=== PATIENT | female | born 1940 | race Caucasian/White ===

== ENCOUNTER 2016-09-23 14:02 | Emergency (ER) | payer OTHER ==
[~2016-09-23] VITALS: Ht 157.5 cm; Wt 94.1 kg
[~2016-09-23 14:02] MED LIST: CALCIUM600 M1 PO; EEMT HS 0.625-1 EACH PO; HAIR SKIN NAIL1 EACH PO; KENALOG IN ORABA5 GM DT; LEXAPRO10 MG PO; LOPRESSOR25 MG PO; MICARDIS20 MG PO; MYCELEX10 MG PO; NAPROSYN500 MG PO; PROBIOTIC1 EAC1 PO; PROMETRIUM100 MG PO; SILVER SULFADIA50 GM TP; TOPROL XL50 MG PO; XANAX0.25 MG PO
[2016-09-23 14:41] LABS: BASOPHIL COUNT 0.1 K/uL (0-0.1); EOSINOPHIL (%) 1.4 % (0-5); EOSINOPHIL COUNT 0.1 K/uL (0-0.3); HEMATOCRIT 40.6 % (36.0-46.0); IMMATURE GRANULOCYTE (%) 0.1 % (0.0-0.7); IMMATURE GRANULOCYTE COUNT 0.1 K/uL; LYMPHOCYTE COUNT 1.3 K/uL (1.0-2.8); MCH 31.9 PG (29.0-34.0); MCHC 33.5 G/DL (30.0-36.0); MCV 95.1 FL (83-99); MEAN PLAT.VOLUME 11.8 uM^3 (9.5-12.4); MONOCYTE (%) 9.3 % (3-12); MONOCYTE COUNT 0.7 K/uL (0-0.8); NEUTROPHIL (%) 71.3 % (45-76); NEUTROPHIL COUNT 5.4 K/uL (1.8-6.4); PLATELET COUNT 251 K/uL (156-360); RBC DIS.WIDTH-SD 43.5 % (39-53); RED BLOOD COUNT 4.27 M/uL (3.80-5.20); WHITE BLOOD COUNT 7.6 K/uL (4.1-10.2)
[2016-09-23 14:57] LABS: CHLORIDE 106 mEq/L (99-109); POTASSIUM 5.1 mEq/L (3.7-5.4); SODIUM 137 mEq/L (136-147)
[2016-09-23 14:59] LABS: GLUCOSE 102 mg/dL (70-99)
[2016-09-23 15:00] LABS: ANION GAP 11 MEQ/L (2-14)
[2016-09-23 15:01] LABS: TROP-I INTERPRETATION NEGATIVE; TROPONIN-I < 0.01 ng/mL (0.0-0.30)
[2016-09-23 15:02] LABS: GFR ESTIMATE (CALCULATED) > 59 mL/min/
[2016-09-23 15:03] LABS: UREA NITROGEN (BUN) 12 mg/dL (9-23)
[2016-09-23 15:03] LABS: BILIRUBIN NEGATIVE; BLOOD NEGATIVE; COLOR YELLOW ((YELLOW)); GLUCOSE (STRIP) NEGATIVE; KETONES NEGATIVE; LEUKOCYTES NEGATIVE; NITRITE NEGATIVE; PROTEIN (STRIP) NEGATIVE; SPECIFIC GRAVITY 1.008 (1.000-1.030); UROBILINOGEN 0.2 MG/DL (0.2-1.0)
[2016-09-23 15:08] LABS: ADD MIUA? NO; UCUL ADDED? NO
[2016-09-23] MEDS ORDERED: MICARDIS40 MG PO (15:35)
[2016-09-23] MEDS ORDERED: TOPROL XL50 MG PO (15:36)
[2016-09-23] MEDS ORDERED: PROGESTERONE100 MG PO (15:37)
[2016-09-23] MEDS ORDERED: NEXIUM20 MG PO (15:37)
[2016-09-23] MEDS ORDERED: ZITHROMAX Z-PA250 MG PO (17:40)
[2016-09-23 18:10] VITALS: BP 120/84
== END 2016-09-23 18:25 | disposition home or self-care (01) ==
LOC: EME 14:02
PROVIDERS: Emergency Medicine
DX: J01.90 Acute sinusitis, unspecified (principal); R53.1 Weakness; R05 Cough; I10 Essential (primary) hypertension; K21.9 Gastro-esophageal reflux disease without esophagitis; Z85.828 Personal history of other malignant neoplasm of skin; Z87.891 Personal history of nicotine dependence
CPT/HCPCS: 71020; 71260; 80048; 81003; 84484; 85025; 93005; 99281; 99285; J7030

== ENCOUNTER → 2018-03-22 | Outpatient (CLI) | payer OTHER ==
[~2018-03-22] VITALS: Ht 157.5 cm; Wt 89.4 kg
[~2018-03-22] MED LIST changes: +CYANOCOBAL1000 MCG/2 IM; +DAILY MULTIPLE1 EACH PO; +METOPROLOL SUCC25 MG PO; +MICARDIS40 MG PO; +NEXIUM20 MG PO; +OMEGA-31000 M1 PO; +OMEPRAZOLE20 M2 PO; +PROGESTERONE100 MG PO; +ZITHROMAX Z-PA250 MG PO
== END | disposition home or self-care (01) ==
LOC: AMB 07:20
DX: K22.2 Esophageal obstruction (principal); K29.60 Other gastritis without bleeding; K29.80 Duodenitis without bleeding; K26.9 Duodenal ulcer, unspecified as acute or chronic, without hemorrhage or perforation; K25.9 Gastric ulcer, unspecified as acute or chronic, without hemorrhage or perforation; Z80.0 Family history of malignant neoplasm of digestive organs; Z87.891 Personal history of nicotine dependence; Z79.818 Long term (current) use of other agents affecting estrogen receptors and estrogen levels; Z88.1 Allergy status to other antibiotic agents; Z88.2 Allergy status to sulfonamides; Z88.5 Allergy status to narcotic agent
CPT/HCPCS: 88305; 88342 TC